=== PATIENT | female | born 1985 | race Caucasian/White ===

== ENCOUNTER 2018-05-19 09:32 | Inpatient (IN) ==
[2018-05-19] MEDS ORDERED: Ondansetron 4 MG/2 ML VIAL IVP PRN (09:43)
[2018-05-19] MEDS ORDERED: Famotidine 20 MG/2 ML VIAL IVP PRN (09:43)
[2018-05-19] MEDS ORDERED: Naloxone 0.4 MG/ML INJ IVP PRN (09:43)
[2018-05-19] MEDS ORDERED: *HR* Nalbuphine 10 MG/ML AMPUL IVP PRN (09:43)
[2018-05-19] MEDS ORDERED: Ringers Solution, Lactated 1,000 ML IVC SCH (09:45)
[2018-05-19] MEDS ORDERED: Oxytocin 20 units/ LR 1000 mL 20 UNIT/1,000 ML BAG IVC SCH ×2 (09:45→18:50)
--- NOTE | 2018-05-19 10:44 | OB/GYN History & Physical ---
Date of Encounter: 05/19/18 Time of Encounter: 10:41 Assessment and Plan (1) 39 weeks gestation of Current visit: Yes Status: Acute admitted for delivery (2) Gestational HTN Current visit: Yes Status: Acute Serial BP PIH labs IOL Qualifiers: Trimester: third trimester Qualified Code(s): O13.3 - Gestational [ -induced] hypertension without significant proteinuria, third trimester (3) Rh negative state in antepartum period Current visit: Yes Status: Acute Rhogam evaluation following delivery History of Present Illness Chief complaint: IOL for Gestational HTN HPI: Ms. Barajas is a 33 year old female at 39w2d presents to labor and delivery for IOL following an elevated BP in the office today. Patient denies, headache, visual disturbances or epigastric pain. Patient does report +FM and contractions that started around 0200. Patient was dilated 4cm in office today. Blood type: A Negative Rubella: Immune Hep B: Nonreactive GBS: Negative Past Med Surg Social Fam HX - Past Medical History Source: patient Medical history: hypertension Additional medical history: Cysts on ovaries in early Psychiatric history: anxiety - Past Surgical History Surgical History: non-contributory Additional surgical history: Cyst removed on left wirst 10 years ago - Social History Smoking Status: Former smoker Smokeless Tobacco Status: No Alcohol use: none Drug use: none - Family History Father Living Status: Still Living Hx Family Endocrine Disorder: Yes Obstetrical History - Pregnancies : 2 Para: 1 Term: 1 : 0 Ab's: 0 Livin Medications and Allergies Pnv with Ca,No.72/Iron/FA [Pnv Plus Multivit Tab] 1 tab PO DAILY [History] Vit/FA 1 each PO DAILY tablet 03/08/16 [Rx] Aspirin [Lo-Dose Aspirin EC] 81 mg PO DAILY 05/19/18 [History] Magnesium 250 mg PO DAILY 05/19/18 [History] 3 Allergy/AdvReac Type Severity Reaction Status Date / Time No Known Allergies Allergy Verified 07/24/15 21:38 Review of System OB - Constitutional Constitutional ROS IM: no chills, no fever(s), no headache(s) - Cardiovascular Cardiovascular: pedal edema, no chest pain, no lightheadedness, no palpitations , no syncope - Respiratory Respiratory: no dyspnea - Gastrointestinal Gastrointestinal: cramping, no abdominal pain, no constipation, no diarrhea, no heartburn, no nausea, no vomiting - Genitourinary Genitourinary: no abnormal vaginal bleeding, no dysuria, no flank pain, no urinary frequency, no urinary hesitancy, no urinary urgency, no vaginal discharge, no vaginal odor, no vaginal pruritis Exam - Constitutional Constitutional: well developed, well nourished, no acute distress, average body habitus - HEENT HEENT: Normocephaly, Mucus Membranes Moist - Neck Neck exam: full ROM, supple - Lungs Respiratory exam: CTAB - Cardiovascular Cardiovascular exam: RRR, +S1, +S2 - Abdomen Abdomen: Present: bowel sounds normal, gravid, non tender - Extremities Extremities exam: full ROM, normal inspection Deep Tendon Reflex Grade: 2+ Normal - Uterus Uterus exam: Present: normal size, normal contour - Comments Comments: FHr 135 bpm moderate variability +15x15 accels no decels noted. Contractions every 4 min. Cat. 1 tracing Results All other labs normal. - VTE Reasons for not Prescribing Prophylaxis: Treatment not Indicated - Low risk for VTE
[2018-05-19 10:55] LABS: Basophils % 0.3 %; Eosinophils # 0.1 K/mcL (0.0-0.6); Eosinophils % 0.5 %; Hematocrit 38.1 % (35.3-44.9); Hemoglobin 12.9 g/dL (11.5-15.4); Immature Granulocytes % 0.4 % (0-4); Lymphocytes # 1.9 K/mcL (0.6-4.6); Lymphocytes % 16.9 %; Mean Corpuscular HGB Conc 33.9 g/dL (31.6-35.5); Mean Corpuscular Hemoglobin 29.5 pg (28.0-33.3); Mean Corpuscular Volume 87.2 fL (83.0-100.0); Mean Platelet Volume 10.5 fL (9.4-12.4); Monocytes # 0.6 K/mcL (0.0-1.3); Monocytes % 5.4 %; Neutrophils # 8.5 K/mcL (1.6-8.9); Platelet Count 264 K/mcL (140-400); Red Blood Count 4.37 M/mcL (3.82-4.97); Red Cell Distribution Width 13.4 % (11.5-14.5); Segmented Neutrophils % 76.5 %
[2018-05-19] MEDS ORDERED: *HR* Labetalol 20 MG/4 ML SYRINGE IVP ONE ×2 (11:27→11:30)
[2018-05-19 12:00] LABS: Amphetamine Screen,Urine Negative ng/mL (Cutoff=1000); Barbiturate Screen,Urine Negative ng/mL (Cutoff=200); Benzodiazepines Screen,Urine Negative ng/mL (Cutoff=200); Cannabinoid Screen,Urine Negative ng/mL (Cutoff = 50); Cocaine Screen,Urine Negative ng/mL (Cutoff= 300); Opiate Screen,Urine Negative ng/mL (Cutoff=300); Phencyclidine Screen,Urine Negative ng/mL (Cutoff=25)
--- NOTE | 2018-05-19 13:32 | Anesthesia Evaluation PreOp ---
Date of Encounter: 05/19/18 Time of Encounter: 13:30 - Past History Planned Operation: qian Cardiac History: Denies any Significant Hx Pulmonary History: Denies Any Significant HX CHARRER History: Denies Any Significant HX Other Medical History: GERD Anesthesia History: No Prior Anesthetic Complications, Past Anesthesia (qian, wrist) : Yes Test: Positive Alcohol Use: none Drug use: none Medications and Allergies Pnv with Ca,No.72/Iron/FA [Pnv Plus Multivit Tab] 1 tab PO DAILY [History] Vit/FA 1 each PO DAILY tablet 03/08/16 [Rx] Aspirin [Lo-Dose Aspirin EC] 81 mg PO DAILY 05/19/18 [History] Magnesium 250 mg PO DAILY 05/19/18 [History] 3 Allergy/AdvReac Type Severity Reaction Status Date / Time No Known Allergies Allergy Verified 07/24/15 21:38 - Meds/Allergy Pre-op Review Medications Reviewed: Yes Allergies Reviewed: Yes Beta Blockers on Current Med List: No Anesthesia Results - Labs 05/19/18 10:16 Anesthesia Exam 130/80 66 16 fht 133 Height: 5'8" Weight: 227 NPO (# of Hours): 3 Pain Scale: 4 Pain Scale Used: Numeric (1 - 10) - HEENT Pupil (Motor): Pupils equal Mallampati: II Teeth: Normal Oral Opening: Greater than 3 - CHARRER LOC: Oriented CHARRER Motor: Normal RUE, Normal LUE, Normal RLE, Normal LLE, Normal Face CHARRER Sensory: Normal: RUE, LUE, RLE, LLE, Face - Cardiac Rhythm: Regular Murmur: None - Pulmonary Breath Sounds: bilateral Clear Respiratory Effort: Symmetrical Anesthesia Assess/Plan ASA Score: 2 Modified Elena Scale for Level of Consciousness: Cooperative, oriented, and tranquil Anesthetic Plan: MAC Autologous Blood: No Monitoring Plan: Standard Monitors Recovery Plan: Other (risksdiscussed, questions answered, consented)
[2018-05-19] MEDS ORDERED: *HR* Ropivacaine/PF 0.2% 20 ML VIAL EP ONE (13:33)
[2018-05-19] MEDS ORDERED: *HR* FentaNYL (PF) 100 MCG/2 ML VIAL EP ONE (13:33)
[2018-05-19] MEDS ORDERED: *HR* Ropivacaine/PF 0.2% 20 ML VIAL ONE (13:37)
[2018-05-19] MEDS ORDERED: *HR* FentaNYL (PF) 100 MCG/2 ML VIAL ONE (13:37)
[2018-05-19] MEDS ORDERED: Lidocaine -MPF 2% 5 ML VIAL ONE (13:37)
[2018-05-19] MEDS ORDERED: Epidural Premix (fent/bupiv) 110 ML EP SCH (13:45)
--- NOTE | 2018-05-19 14:03 | Anesthesia Procedures ---
Date of Encounter: 05/19/18 Time of Encounter: 14:01 Procedures: Anesthesia - Epidural/Spinal Patient ID/Chart reviewed: Yes Patient examined: Yes OB Eval: Gestational age: 39.2 OB Eval: : 2 OB Eval: Hx Para: 1 OB Eval: Dilated at (cm): 5 OB Eval: Contractions: Non-stressed pattern Consent Obtained: Yes Supplemental Oxygen: None/Room Air Site Prep: Aseptic Technique, Sterile prep and drape, 0.5% Chlorhexidine/Alcohol Patient position: upright Local Anesthetic: Lidocaine 1% Amount of Local Anesthetic used: 3 Touhy Needle Gauge: 18 Touhy Needle Depth (cm): 6 Catheter Depth at Skin (cm): 16 Test Dose (1.5% Lido + Epi): Volume given (mls): 3 Test Dose Result: Negative Loading Dose: Fentanyl (mcg): 100 Loading Dose: Other: rop 0.2% 10cc Loading Dose Administered: Thru Touhy Needle Infusion Med: 0.125% Bupivacaine w/ 2 mcg/ml Fentanyl Infusion Rate (mls/hr): 15 (pcea 5cc q30") Interspace Used: L2-L3 Loss of Resistance (LUIS M): Yes Blood: No CSF: No Paresthesia: No Procedure: aseptic, rommel well, VSS, effective Vitals + FHT's: 112/78 88 16 fht 124
--- NOTE | 2018-05-19 15:09 | OB Labor Progress Note ---
Date of Encounter: 05/19/18 Time of Encounter: 15:07 Labor Progress Note - Subjective Subjective: Patient resting in bed. Denies any pain at this time. Discussed POC with patient. Patient denies any questions or concerns. - Cervix Cervix: 8/100/-1 - Heart Tones Heart Tones: 110 bpm moderate variability +15x15 accels no decels noted. Cat. 1 tracing - Chaparral Chaparral: irregular - Interventions Interventions: SVE, AROM moderate amount of clear fluid noted. Patient tolerated well. - Plan Plan: Continue labor management anticipate
--- NOTE | 2018-05-19 17:54 | OB/GYN Procedure Note ---
Delivery - Delivery Date: 05/19/18 Provider: Cassidy Ramey Intrapartum events: none Delivery induction: AROM, oxytocin Delivery monitor: external FHT, external uterine Anesthesia: epidural Quantitated Blood Loss: 100 - (s) Infant A Infant Delivery Date: 05/19/18 Delivery Time: 17:32 Presentation: vertex Position: LANI Route of delivery: Gender: Female Viability: Viable Pounds: 6 Ounces: 8 Weight Gram: 2945 kg at 1 minute: 9 at 5 mins: 9 Shoulder Dystocia: not encountered Specimens collected: cord blood Placenta: spontaneous, uterine exploration Cord: 3 umbilical vessels - Repair Episiotomy: none Laceration Description: None - Complications Delivery complications: none - Disposition Mom disposition: stable in LDR disposition: stable in LDR - Comments Comments: Called to LDR patient complete and pushing. Patient placed in stirrups and prepped for vaginal delivery. Under maternal effort patient spontaneously delivered a viable female over an intact perineum. No nuchal, shoulder dystocia or meconium was encountered. was placed on maternal abdomen. Cord was clamped and cut after pulsation ceased. Cord blood was collected. Placenta delivered spontaneously and intact. Pericare provided. All counts correct. Both mother and infant stable in LDR for 2 hour recovery. Patient desires tubal ligation. Bed management was notified and patient was added to tomorrows surgery schedule.
[2018-05-19] MEDS ORDERED: Rho Immune Globulin 1,500 UNIT SYRINGE IM PRN (18:50)
[2018-05-19] MEDS ORDERED: Acetaminophen 325 MG TABLET PO PRN (18:50)
[2018-05-19 19:07] LABS: Alanine Aminotransferase 17 Units/L (7-52); Aspartate Amino Transferase 29 Units/L (13-39); BUN/Creatinine Ratio 11 (6-26); Blood Urea Nitrogen 6 mg/dL (6-20); Lactate Dehydrogenase 118 Units/L (140-271); Uric Acid 5.1 mg/dL (2.3-7.6); eGFR For African Americans > 60 (> 60); eGFR For Non-African Americans > 60 (> 60)
[2018-05-19] MEDS ORDERED: Ringers Solution, Lactated 1,000 ML ONE (19:15)
[2018-05-19] MEDS: Ibuprofen 600 MG TABLET PO PRN (20:07)
[2018-05-20 04:42] LABS: Basophils % 0.2 %; Eosinophils # 0.1 K/mcL (0.0-0.6); Eosinophils % 0.6 %; Hematocrit 30.9 % (35.3-44.9); Immature Granulocytes % 0.6 % (0-4); Lymphocytes # 2.5 K/mcL (0.6-4.6); Lymphocytes % 21.2 %; Mean Corpuscular HGB Conc 34.3 g/dL (31.6-35.5); Mean Corpuscular Hemoglobin 29.9 pg (28.0-33.3); Mean Corpuscular Volume 87.3 fL (83.0-100.0); Mean Platelet Volume 9.7 fL (9.4-12.4); Monocytes # 0.9 K/mcL (0.0-1.3); Monocytes % 7.2 %; Neutrophils # 8.3 K/mcL (1.6-8.9); Platelet Count 204 K/mcL (140-400); Red Blood Count 3.54 M/mcL (3.82-4.97); Red Cell Distribution Width 13.2 % (11.5-14.5); Segmented Neutrophils % 70.2 %
[2018-05-20 04:56] LABS: Hemoglobin 10.6 g/dL (11.5-15.4)
[2018-05-20 04:59] LABS: Alanine Aminotransferase 15 Units/L (7-52); Aspartate Amino Transferase 27 Units/L (13-39); BUN/Creatinine Ratio 15 (6-26); Blood Urea Nitrogen 7 mg/dL (6-20); Lactate Dehydrogenase 133 Units/L (140-271); eGFR For African Americans > 60 (> 60); eGFR For Non-African Americans > 60 (> 60)
[2018-05-20] MEDS: Prenatal Vit/FA 1 EACH TABLET PO SCH ×2 (08:12→09:21)
--- NOTE | 2018-05-20 09:20 | Discharge Summary ---
Date of Encounter: 05/20/18 Time of Encounter: 09:18 - Discharge Diagnosis (1) Vaginal delivery Priority: Primary Status: Acute Comments: Routine PP care. Patient wants a tubal ligation. We discussed PP tubal vs interval at 6-8 weeks laparoscopically. She has opted to wait. She declines any control until the tubal happens. - Discharge Medications Home Medications: Pnv with Ca,No.72/Iron/FA [Pnv Plus Multivit Tab] 1 tab PO DAILY [History] Vit/FA 1 each PO DAILY tablet 03/08/16 [Rx] Aspirin [Lo-Dose Aspirin EC] 81 mg PO DAILY 05/19/18 [History] Magnesium 250 mg PO DAILY 05/19/18 [History] Ibuprofen [Motrin] 600 mg PO Q6HR PRN tablet 05/20/18 [Rx] Allergies/Adverse Reactions: 3 Allergy/AdvReac Type Severity Reaction Status Date / Time No Known Allergies Allergy Verified 07/24/15 21:38 Data Procedures and tests throughout hospitalization: Laboratory Tests 05/19/18 05/19/18 05/19/18 10:15 10:16 13:17 WBC 11.1 RBC 4.37 Hgb 12.9 Hct 38.1 MCV 87.2 MCH 29.5 MCHC 33.9 RDW 13.4 Plt Count 264 MPV 10.5 Immature Gran % 0.4 Seg Neutrophils % 76.5 Lymphocytes % 16.9 Monocytes % 5.4 Eosinophils % 0.5 Basophils % 0.3 Neutrophils # 8.5 Lymphocytes # 1.9 Monocytes # 0.6 Eosinophils # 0.1 Basophils # 0.0 BUN Creatinine Est GFR ( Amer) Est GFR (Non-Af Amer) BUN/Creatinine Ratio Uric Acid AST ALT Lactate Dehydrogenase Urine Opiates Screen Negative Ur Barbiturates Screen Negative Ur Phencyclidine Scrn Negative Ur Amphetamines Screen Negative U Benzodiazepines Scrn Negative Urine Cocaine Screen Negative U Marijuana (THC) Screen Negative Ur Drug Screen Interp See Below Specimen Rejected Hemolyzed Baby's Blood Type Mother's Blood Type Rhogam Indicated 05/19/18 05/19/18 05/20/18 18:30 19:40 04:12 WBC 11.9 H RBC 3.54 L Hgb 10.6 L D Hct 30.9 L MCV 87.3 MCH 29.9 MCHC 34.3 RDW 13.2 Plt Count 204 MPV 9.7 Immature Gran % 0.6 Seg Neutrophils % 70.2 Lymphocytes % 21.2 Monocytes % 7.2 Eosinophils % 0.6 Basophils % 0.2 Neutrophils # 8.3 Lymphocytes # 2.5 Monocytes # 0.9 Eosinophils # 0.1 Basophils # 0.0 BUN 6 Creatinine 0.54 L Est GFR ( Amer) > 60 Est GFR (Non-Af Amer) > 60 BUN/Creatinine Ratio 11 Uric Acid 5.1 AST 29 ALT 17 Lactate Dehydrogenase 118 L Urine Opiates Screen Ur Barbiturates Screen Ur Phencyclidine Scrn Ur Amphetamines Screen U Benzodiazepines Scrn Urine Cocaine Screen U Marijuana (THC) Screen Ur Drug Screen Interp Specimen Rejected Baby's Blood Type O RH POSITIVE Mother's Blood Type A RH NEGATIVE Rhogam Indicated YES 05/20/18 04:12 WBC RBC Hgb Hct MCV MCH MCHC RDW Plt Count MPV Immature Gran % Seg Neutrophils % Lymphocytes % Monocytes % Eosinophils % Basophils % Neutrophils # Lymphocytes # Monocytes # Eosinophils # Basophils # BUN 7 Creatinine 0.48 L Est GFR ( Amer) > 60 Est GFR (Non-Af Amer) > 60 BUN/Creatinine Ratio 15 Uric Acid 5.0 AST 27 ALT 15 Lactate Dehydrogenase 133 L Urine Opiates Screen Ur Barbiturates Screen Ur Phencyclidine Scrn Ur Amphetamines Screen U Benzodiazepines Scrn Urine Cocaine Screen U Marijuana (THC) Screen Ur Drug Screen Interp Specimen Rejected Baby's Blood Type Mother's Blood Type Rhogam Indicated Labs on day of discharge: Labs from last 24 hours 05/20/18 05/20/18 05/19/18 04:12 04:12 19:40 WBC 11.9 H RBC 3.54 L Hgb 10.6 L D Hct 30.9 L MCV 87.3 MCH 29.9 MCHC 34.3 RDW 13.2 Plt Count 204 MPV 9.7 Immature Gran % 0.6 Seg Neutrophils % 70.2 Lymphocytes % 21.2 Monocytes % 7.2 Eosinophils % 0.6 Basophils % 0.2 Neutrophils # 8.3 Lymphocytes # 2.5 Monocytes # 0.9 Eosinophils # 0.1 Basophils # 0.0 BUN 7 Creatinine 0.48 L Est GFR ( Amer) > 60 Est GFR (Non-Af Amer) > 60 BUN/Creatinine Ratio 15 Uric Acid 5.0 AST 27 ALT 15 Lactate Dehydrogenase 133 L Urine Opiates Screen Ur Barbiturates Screen Ur Phencyclidine Scrn Ur Amphetamines Screen U Benzodiazepines Scrn Urine Cocaine Screen U Marijuana (THC) Screen Ur Drug Screen Interp Specimen Rejected Screen Pending Baby's Blood Type O RH POSITIVE Mother's Blood Type A RH NEGATIVE Rhogam Indicated YES Rhogam Req for Mother Pending 05/19/18 05/19/18 05/19/18 18:30 13:17 10:16 WBC 11.1 RBC 4.37 Hgb 12.9 Hct 38.1 MCV 87.2 MCH 29.5 MCHC 33.9 RDW 13.4 Plt Count 264 MPV 10.5 Immature Gran % 0.4 Seg Neutrophils % 76.5 Lymphocytes % 16.9 Monocytes % 5.4 Eosinophils % 0.5 Basophils % 0.3 Neutrophils # 8.5 Lymphocytes # 1.9 Monocytes # 0.6 Eosinophils # 0.1 Basophils # 0.0 BUN 6 Creatinine 0.54 L Est GFR ( Amer) > 60 Est GFR (Non-Af Amer) > 60 BUN/Creatinine Ratio 11 Uric Acid 5.1 AST 29 ALT 17 Lactate Dehydrogenase 118 L Urine Opiates Screen Ur Barbiturates Screen Ur Phencyclidine Scrn Ur Amphetamines Screen U Benzodiazepines Scrn Urine Cocaine Screen U Marijuana (THC) Screen Ur Drug Screen Interp Specimen Rejected Hemolyzed Screen Baby's Blood Type Mother's Blood Type Rhogam Indicated Rhogam Req for Mother 05/19/18 10:15 WBC RBC Hgb Hct MCV MCH MCHC RDW Plt Count MPV Immature Gran % Seg Neutrophils % Lymphocytes % Monocytes % Eosinophils % Basophils % Neutrophils # Lymphocytes # Monocytes # Eosinophils # Basophils # BUN Creatinine Est GFR ( Amer) Est GFR (Non-Af Amer) BUN/Creatinine Ratio Uric Acid AST ALT Lactate Dehydrogenase Urine Opiates Screen Negative Ur Barbiturates Screen Negative Ur Phencyclidine Scrn Negative Ur Amphetamines Screen Negative U Benzodiazepines Scrn Negative Urine Cocaine Screen Negative U Marijuana (THC) Screen Negative Ur Drug Screen Interp See Below Specimen Rejected Screen Baby's Blood Type Mother's Blood Type Rhogam Indicated Rhogam Req for Mother Date of admission: 05/19/18 09:32 Primary care physician: PCP NONE Consults: 05/19/18 18:50 Consult to [facility] [CONS] Routine Comment: Vaginal delivery, consult needed Discharging clinician: Ida Griggs Anticipated date of discharge: 05/20/18 - Patient Status Disposition: Home, Self-Care Condition: Good Functional capacity at discharge: independent ambulation Overall status at discharge: patient is progressing back to baseline - Discharge Instructions Follow Up With: NONE,PCP [Primary Care Provider] - Hospital Course Reason for admission: IUP at term Delivery: Episiotomy: none Laceration: none Other procedures: none complications: none Discharge diagnosis: IUP at term delivered [place] baby: female Time Attestation: Total time spent providing and/or coordinating discharge services: Time Spent: Less than 30 minutes Exam - Constitutional Vitals: Temp Pulse Resp BP Pulse Ox 98.3 F 90 16 119/80 98 05/20/18 07:58 05/20/18 07:58 05/20/18 07:58 05/20/18 07:58 05/20/18 04:00 General appearance IM: A&O X 3, no acute distress - Respiratory Respiratory exam: Present: CTAB. Absent: respiratory distress - Cardiovascular Cardiovascular exam IM: Present: RRR. Absent: irregular rhythm - GI/Abdominal GI/Abdominal exam IM: normal bowel sounds - Rectal Rectal exam: deferred - Uterine Tone: Firm Uterus Position: At Umbilicus - Extremities Exam Extremities exam IM: Absent: calf tenderness
[2018-05-20] MEDS: Ibuprofen 600 MG TABLET PO PRN (09:21)
[2018-05-20 15:56] VITALS: BP 138/95
== END 2018-05-20 17:04 | disposition home or self-care (01) | DRG 775 ==
LOC: 1NENULAB 09:32 → 1NENUOBS 19:56
PROVIDERS: ADMIT Obstetrics & Gynecology; ATTEND Obstetrics & Gynecology